=== PATIENT | female | born 1975 | race Caucasian/White ===

== ENCOUNTER 2017-10-10 08:34 | Emergency (ER) | payer OTHER ==
[2017-10-10] MEDS ORDERED: IOPAMIDOL-300 100 ML VIAL IVP ONE ×2 (08:35→10:13)
[2017-10-10] MEDS ORDERED: CLINDAMYCIN 600 MG/50 ML 50 ML IV ONE (08:58)
[2017-10-10] MEDS ORDERED: IOPAMIDOL-300 100 ML VIAL ONE (09:41)
--- NOTE | 2017-10-10 09:47 | ED Physician Documentation ---
PD HPI HEENT - Stated complaint Stated Complaint: MOUTH PX/ PANIC ATTACK - Chief complaint Chief Complaint: Heent - History obtained from History obtained from: Patient, Family (Spouse), EMS - History of Present Illness Timing - onset: How many weeks ago (1) Location: Throat, Mouth Worsens: Swalllowing Recently seen: Emergency Dept (6 days ago.) - Treatment prior to arrival Treatment prior to arrival: Clindamycin. - Additional information Additional information: The patient is a 42-year-old female who is visiting here from [place], having arrived last night, and who presents via ambulance complaining of right jaw and throat pain. 1 week ago she was seen in urgent care clinic in [place] because of pain in her right mandibular region. She was started on cephalexin at that time because of submandibular swelling. 6 days ago she went to an emergency department in [place] because of increased swelling and pain with swallowing. A CT scan revealed "infected lymph node." She was treated with IV clindamycin, IV steroid , and discharged with oral clindamycin, which she has been taking since. This morning she was concerned because of increased pain in her submandibular region , and then there was a gush of thick, malodorous "stringy goo." She admits to hyperventilating after that episode, but denies any difficulty breathing currently. She denies any recent fever, stating she has been taking Motrin and Tylenol [id number]. She denies any tooth pain or headache. She denies history of similar symptoms in the past. Review of Systems Constitutional: denies: Fever Eyes: denies: Irritation Ears: denies: Ear pain Nose: denies: Congestion Throat: reports: Sore throat, Other (Drainage of pus from submandibular abscess. ) Cardiac: denies: Chest pain / pressure Respiratory: denies: Dyspnea, Cough GI: denies: Abdominal Pain, Vomiting : denies: Dysuria Skin: denies: Rash Neurologic: denies: Headache PD PAST MEDICAL HISTORY - Past Medical History Past Medical History: No Cardiovascular: None Neuro: None Endocrine/Autoimmune: None - Past Surgical History Past Surgical History: No - Present Medications Home Medications: Ambulatory Orders Medication Instructions Recorded Confirmed Clindamycin [Cleocin] 10/10/17 Fluconazole [Diflucan] 150 mg PO ONCE #2 tablet 10/10/17 Levofloxacin [Levaquin] 500 mg PO DAILY #7 tablet 10/10/17 oxyCODONE/ACET 5/325 [Percocet 5 1 - 2 tab PO Q4-6H PRN #20 tablet 10/10/17 mg/325 mg] predniSONE [Prednisone] 40 mg PO DAILY #10 tablet 10/10/17 - Allergies Allergies/Adverse Reactions: Allergies Allergy/AdvReac Type Severity Reaction Status Date / Time Penicillins Allergy Unknown Verified 10/10/17 08:42 - Social History Does the pt smoke?: No Smoking Status: Never smoker Does the pt drink ETOH?: Yes Does the pt have substance abuse?: No Additional Social History: Visiting here from [place]. - Immunizations Immunizations are current?: Yes PD ED PE NORMAL - Vitals Vital signs reviewed: Yes (hypertensive.) - General General: Alert and oriented X 3, Well developed/nourished - HEENT HEENT: Atraumatic, EOMI, Ears normal, Pharynx benign, Dentition benign, Other ( Sublingual/submandibular swelling and tenderness to palpation.) - Neck Neck: Supple, no meningeal sign - Cardiac Cardiac: RRR, No murmur - Respiratory Respiratory: No respiratory distress, Clear bilaterally - Abdomen Abdomen: Soft, Non tender - Back Back: No CVA TTP - Derm Derm: No rash - Extremities Extremities: No edema - Neuro Neuro: Alert and oriented X 3, No motor deficit, Normal speech Results - Vitals Vitals: Oxygen O2 Source Room air - Labs Labs: Laboratory Tests 10/10/17 10/10/17 12:02 12:02 WBC 14.9 H RBC 4.74 Hgb 12.3 Hct 37.4 MCV 79.0 L MCH 25.9 L MCHC 32.7 RDW 14.7 Plt Count 424 MPV 6.9 L Neut # 10.3 H Lymph # 3.5 [place] # 0.8 Eos # 0.1 Baso # 0.2 H Absolute Nucleated RBC 0.00 Nucleated RBC % 0.0 Sodium 135 Potassium 3.5 Chloride 102 Carbon Dioxide 26 Anion Gap 7.0 BUN 9 Creatinine 0.7 Estimated GFR (MDRD) 92 Glucose 107 H Calcium 8.3 L - Rads (name of study) CT neck w/ Radiology: Prelim report reviewed, EMP read contemporaneously, See rad report (1 ) Imaging findings suggesting right submandibular gland sialoadenitis adenitis. There appears to be associated cellulitis in the right submandibular space and in the soft tissues of right lower face/submental region. 2) No radiopaque calculi are seen in the submandibular gland and there is no evidence of a radiopaque calculus in the distribution of the right [place]'s duct. 3) No evidence of abscess in the right submandibular space or elsewhere within the neck. 4) Lymph nodes are identified in the right level 2 and 3 kailey stations that meet the size criterion for malignancy, but otherwise have benign imaging features. These lymph nodes are intermediate for possible malignant involvement. Given the other findings within the neck (see above), these may represent reactive lymph nodes. 5) No other significant pathology is demonstrated. The airway appears widely patent throughout.) PD MEDICAL DECISION MAKING - ED course Complexity details: reviewed old records, reviewed results, re-evaluated patient , considered differential, d/w patient, d/w family, d/w toy consultant ED course: The patient's presentation is most consistent with sialadenitis with reactive lymph nodes. CT scan of the neck reveals no evidence of abscess formation or calcification. CBC reveals an elevated white count of 14.9. Treatment in the emergency department included administration of clindamycin 600 mg IV and dexamethasone 10 mg IV. I discussed her condition with Dr. Brodie Mendez, ENT specialist in [place]. He advises having the patient milk the gland from backward and forward, and advises further treatment with steroid medication and suggests changing the antibiotic from clindamycin to Augmentin or Levaquin. The patient is allergic to penicillin so Augmentin is eliminated as an option. The patient is being discharged with prescriptions for Levaquin, prednisone, and Percocet 15 tablets. I discussed with her and her the results of the CT scan, further treatment and outpatient follow-up, as well as potentially worrisome signs or symptoms that should prompt reevaluation in the emergency department. Departure - Departure Disposition: 01 Home, Self Care Clinical Impression: Sialadenitis Condition: Stable Instructions: ED Submandibular Gland Infec Follow-Up: Brodie Mendez MD [Physician No Access] - Prescriptions: Fluconazole [Diflucan] 150 mg PO ONCE #2 tablet Levofloxacin [Levaquin] 500 mg PO DAILY #7 tablet oxyCODONE/ACET 5/325 [Percocet 5 mg/325 mg] 1 - 2 tab PO Q4-6H PRN #20 tablet PRN Reason: Pain predniSONE [Prednisone] 40 mg PO DAILY #10 tablet Comments: Milk the submandibular gland from back to front to express fluid from the submandibular gland. Take prednisone daily for 5 days as prescribed. Take Levaquin once daily as prescribed. Discontinue clindamycin while taking Levaquin. You can use Percocet as prescribed if needed for pain. Avoid Tylenol when using Percocet, but it is okay to use ibuprofen with Percocet. Follow up with the ear nose throat specialist this week if possible. Call to schedule appointment. Return to the emergency department if you develop increasing swelling or pain, increasing difficulty swallowing, or otherwise worsening symptoms. Discharge Date/Time: 10/10/17 12:57
--- NOTE | 2017-10-10 10:38 | CT Preliminary Report ---
Exam: CT NECK SOFT TISSUE W/ Impression: 1. Imaging findings suggesting right submandibular gland sialoadenitis. There appears be associated c ellulitis in the right submandibular space and in the soft tissues of the right lower face/submental region. 2. No radiopaque calculi are seen in the submandibular gland and there is no evidence of a radiopaque calculus in the distribution of the right [place]'s duct. 3. No evidence of abscess in the right submandibular space or elsewhere within the neck. 4. Lymph nodes are identified in the right level II and 3 kailey stations that meet the size criteria on but otherwise have benign imaging features. These lymph nodes are indeterminate for possible malig nant involvement. The other findings (see above). Within the neck, these may represent reactive lymph nodes. 5. No other significant pathology is demonstrated. The airway appears widely patent throughout. SITE ID: [id number]
--- NOTE | 2017-10-10 10:50 | CT Report ---
CT SOFT TISSUE NECK WITH CONTRAST EXAM DATE: 10/10/2017. INDICATION: 42-year-old female with redness and swelling. Large amount of green pus from mouth this a .m. Concern for right submandibular abscess. COMPARISON: None. TECHNIQUE: 80 cc of Isovue-300 contrast was injected intravenously. The neck was scanned helically and data was reconstructed into 2 mm axial images. In addition, sagittal and coronal reformations have been genera rafael. In accordance with CT protocol optimization, one or more of the following dose reduction techniques w ere utilized for this exam: automated exposure control, adjustment of mA and/or KV based on patient s ize, or use of iterative reconstructive technique. FINDINGS: The right submandibular gland appears to be mildly ptotic when compared to the left. In addition, the re appears to be asymmetric, increased size of the right submandibular gland when compared to the lef t. There is no appreciable increase in the enhancement of the gland; however, the margins appear some what fuzzy and there appears to be a small amount of edema or other fluid within the submandibular sp aurelio, surrounding the submandibular gland. The finding suggests probable infection/inflammation of the right submandibular gland. No radiopaque calculi are identified within either submandibular gland. I n addition, no obvious radiopaque calculus is identified in the distribution of either [place]ata[place]'s duct . Assessment of anterior floor of mouth is somewhat limited, however, due to beam-hardening artifact from metal dental hardware. There is asymmetric thickening of the right platysma muscle. Inflammatory stranding is identified in the subcutaneous fat, on both sides of the platysma muscle, suggesting ce llulitis, probably secondary to infection in the submandibular space. On image 49 of series #3 there does appear to be abnormal, soft tissue density along the lingual and buccal surfaces of the body of the right hemimandible, suggesting the possibility of phlegmon. However, there is no evidence of acti ve, periapical abscess or other infection in the right mandible. No abscess is identified within the right submandibular space or elsewhere in the neck. The nasopharyngeal soft tissues are symmetric. The oropharyngeal soft tissues appear symmetric. The o ral tongue is partially obscured due to beam-hardening artifact from metal dental hardware. Grossly n o mass is demonstrated. There is symmetric enlargement of the lingual tonsil with associated effaceme nt of the vallecula. The larynx and hypopharynx are unremarkable. The imaged trachea is patent. The t hyroid is partially obscured due to beam-hardening artifact from the shoulders. Grossly it has a norm al appearance. The parotid glands are unremarkable. The carotid and vertebral arteries appear patent. The internal jugular veins appear patent. Multiple, well-defined, homogeneous, nonnecrotic lymph nodes are identified in the neck. A lymph node in the right level IIa kailey station (jugulodigastric node) meets size criterion for possible malign ant involvement, measuring about 1.8 x 0.85 cm in maximal long and short axis dimension. In addition, an enlarged right level III lymph node is identified (see image 62 of series #3) measuring up to 1.7 x 1.15 cm on axial images. No other lymph nodes meeting the size criterion for malignancy are identi fied. No necrotic or suppurative lymph nodes are demonstrated. No focal mass/nodule is identified in the imaged upper lungs. Regional bony structures appear intact. The middle ear cavities and mastoid air cells appear clear. I margoth paranasal sinuses appear clear. No mass is identified in the imaged orbits. No obvious acute pa thology is seen in the imaged brain. IMPRESSION: 1. Imaging findings suggesting right submandibular gland sialoadenitis. There appears to be associate d cellulitis in the right submandibular space and in the soft tissues of right lower face/submental r egion. 2. No radiopaque calculi are seen in the submandibular gland and there is no evidence of a radiopaque calculus in the distribution of the right [place]ata[place]'s duct. 3. No evidence of abscess in the right submandibular space or elsewhere within the neck. 4. Lymph nodes are identified in the right level II and III kailey stations that meet the size criteri on for malignancy but otherwise have benign imaging features. These lymph nodes are indeterminate for possible malignant involvement. Given the other findings within the neck (see above), these may rep resent reactive lymph nodes. 5. No other significant pathology is demonstrated. The airway appears widely patent throughout. Referring Provider Line: [phone] SITE ID: [id number]
[2017-10-10] MEDS ORDERED: DEXAMETHASONE 10 MG/ML VIAL IVP STA (11:06)
[2017-10-10 12:11] LABS: BASOPHILS # (AUTO) 0.2 10^3/uL (0.0-0.1); BASOPHILS % (AUTO) 1.1 %; EOSINOPHILS # (AUTO) 0.1 10^3/uL (0.0-0.7); EOSINOPHILS % (AUTO) 0.9 %; HGB - HEMOGLOBIN 12.3 g/dL (12.0-16.0); LYMPHOCYTES # (AUTO) 3.5 10^3/uL (1.5-3.5); LYMPHOCYTES % (AUTO) 23.7 %; MEAN CORPUSCULAR HEMOGLOBIN 25.9 pg (27.0-31.0); MEAN CORPUSCULAR HGB CONC 32.7 g/dL (32.0-36.0); MEAN PLATELET VOLUME 6.9 fL (7.9-10.8); MONOCYTES # (AUTO) 0.8 10^3/uL (0.0-1.0); MONOCYTES % (AUTO) 5.1 %; NEUTROPHILS # (AUTO) 10.3 10^3/uL (1.5-6.6); NEUTROPHILS % (AUTO) 69.2 %; PLT - PLATELET COUNT 424 10^3/uL (130-450); RED BLOOD COUNT 4.74 10^6/uL (4.20-5.40); RED CELL DISTRIBUTION WIDTH 14.7 % (12.0-15.0); WHITE BLOOD COUNT 14.9 x10^3/uL (4.8-10.8)
[2017-10-10 12:21] LABS: CALCIUM 8.3 mg/dL (8.5-10.3); CREATININE 0.7 mg/dL (0.4-1.0)
[2017-10-10 12:37] VITALS: BP 121/76
== END 2017-10-10 12:57 | disposition home or self-care (01) ==
LOC: ED 08:34
DX: K11.20 Sialoadenitis, unspecified (principal)
CPT/HCPCS: 36415; 70491; 80048; 85025; 96365; 96375; 99283; 99284; Q9967